=== PATIENT | female | born 1985 | race Caucasian/White ===

== ENCOUNTER 2020-06-08 10:57 | Emergency (ER) | payer SELFPAY ==
[2020-06-08 11:17] VITALS: BP 115/60; PULSE 65; RESP 18; TEMP 36.7; O2SAT 100
--- NOTE | 2020-06-08 11:50 | ED.GENADULT ---
HPI - General Adult General Chief complaint: Back Pain/Injury Stated complaint: neck and back pain Source: patient Mode of arrival: ambulatory Limitations: no limitations History of Present Illness HPI narrative: Patient presents for evaluation of right-sided neck pain for the last 2 weeks. She indicates she woke from sleep with her symptoms. No recent trauma to the affected area. She states she has had similar symptoms in the past and pain has resolved without intervention. She has been taking Tylenol for pain with some improvement thereafter. When she gets in the shower, warm water seems to help alleviate her symptoms. She currently rates her pain is 5 out of 10 in severity, described as sharp and pulling. Pain does radiate into the right scapula and along the right side of the neck. She denies any numbness or tingling in her upper extremities. Movement makes her pain worse. No additional complaints or concerns. Related Data Allergies Allergy/AdvReac Type Severity Reaction Status Date / Time No Known Allergies Allergy Verified 06/08/20 11:12 Review of Systems Review of Systems: Narrative: CONSTITUTIONAL: Denies fever, chills, or sweats. EYES: Denies visual changes, redness, or discharge. ENT: Denies rhinorrhea, congestion, sore throat, or otalgia. CARDIOVASCULAR: Denies chest pain, palpitations, or edema. RESPIRATORY: Denies cough or dyspnea. GASTROINTESTINAL: Denies abdominal pain, nausea, vomiting, or diarrhea. GENITOURINARY: Denies dysuria or hematuria. SKIN: Denies rash or itching. MUSCULOSKELETAL: Reports neck pain. Denies back pain, joint pain, or myalgia. NEUROLOGIC: Denies headache, numbness, dizziness, or weakness. PSYCHIATRIC: Denies anxiety or depression. PENDING SALE TO [facility] Past Medical History Medical History No pertinent past medical history Surgical History Surgical History History of Family History Family History Mother No pertinent past medical history Social History Social History (Updated 06/08/20 @ 11:52 by RENE Mendoza, JOSE) Smoking status: Never smoker Alcohol intake: never Substance use: never Living arrangements: with family Gender identity (if verbalized by the patient): Female Sexual Orientation (if Verbalized by the Patient): Straight or Heterosexual Spiritual care concerns: No Exam Narrative: Exam Narrative: GENERAL: Well-appearing, well-nourished, and in no acute distress. HEAD: Normocephalic, atraumatic. EYES: PERRLA and EOMI. ENT: Nares clear, no rhinorrhea or epistaxis. Mucous membranes moist. Oropharynx without tonsillar hypertrophy exudate or other lesions. Bilateral TMs pearly guadarrama nonbulging NECK: Supple. No adenopathy or masses. No carotid bruits or JVD. Tenderness in midline and right paraspinous muscles of the cervical spine and over the right trapezius CHEST: Clear to auscultation. No respiratory distress. No wheezes rales or rhonchi HEART: Regular rate and rhythm. No murmur heard. Normal peripheral pulses. ABDOMEN: Soft, nontender, nondistended, normal active bowel sounds. EXTREMITIES: Normal range of motion. No edema. SKIN: Warm, dry, no rash. NEURO: No focal deficits. Alert and oriented x3. PSYCH: Normal mood and affect. Course Course Emergency Course: This is a 35-year-old female who presents for evaluation of right-sided neck pain, worse with movement for the last 2 weeks. She has a history of similar symptoms. No trauma to the affected area Given the fact that pain is reproducible with movement and palpation, likely muscular in nature. We discussed risk versus benefits of imaging. Doubt fracture as patient has no trauma to the affected area. I told patient I could not definitively rule out pathologic fracture without imaging. She declined imaging. She
== END 2020-06-08 12:02 | disposition home or self-care (01) ==
PROVIDERS: Emergency Provider Nurse Practitioner; PCP Internal Medicine
DX: M79.10 Myalgia, unspecified site (principal)
CPT/HCPCS: 99213; G0463

== ENCOUNTER 2023-12-12 20:28 | Emergency (ER) | payer OTHER, SELFPAY ==
--- NOTE | ~2023-12-12 | XR_ITS ---
EXAMINATION: XR chest 2V DATE: 12/12/2023 23:53 INDICATION: Left flank pain. TECHNIQUE: Frontal and lateral views of the chest were obtained. COMPARISON: CT abdomen and pelvis 12/13/2023 FINDINGS: There is no pneumonia, pleural effusion, or pneumothorax. The heart size is normal. IMPRESSION: 1. No acute cardiopulmonary disease. Reviewed, dictated and finalized at location A.
--- NOTE | ~2023-12-12 | CT_ITS ---
EXAMINATION: CT abdomen pelvis wo con DATE: 12/13/2023 00:16 INDICATION: Right ureteral stone. TECHNIQUE: Computed tomography (CT) of the abdomen and pelvis was performed without intravenous contr ast. Automated exposure control and iterative reconstruction technique were employed. The dose-length product was 240.91 mGy-cm. COMPARISON: None. FINDINGS: The visualized portions of lung bases demonstrate minimal atelectasis. No pleural effusion. The heart size is normal. No pericardial effusion. The liver, gallbladder, spleen, pancreas, adrenal glands are normal. There is a 2 mm stone in right kidney. There is a 15 mm cyst of left kidney. Ther e is a 3 mm stone in left kidney. There are no dilated loops of bowel. The appendix is normal. There are no pathologically enlarged lymph nodes. There is no free intraperitoneal fluid. There is a 4 mm s tone in the bladder. The bones are unremarkable. IMPRESSION: 1. 4 mm stone in the bladder. 2. Bilateral nonobstructing kidney stones. Reviewed, dictated and finalized at location A.
[2023-12-12 20:48] VITALS: BP 98/62; PULSE 69; RESP 18; TEMP 36.7; O2SAT 100
[2023-12-12 23:07] LABS: BEDSIDEPREGUCG Negative
[2023-12-12 23:14] LABS: Add Urine Microscopic? YES; Appearance Urine Cloudy (Clear); Bilirubin Urine Negative (Negative); Blood Urine 3+ (Negative); Color Urine Yellow (Yellow); Glucose Urine UA Negative (Negative); Ketones Urine Negative (Negative); Leukocyte Esterase Ur 1+ LEU/UL (Negative); Nitrate Urine Negative (Negative); Non Pathogenic Casts 0-2; Protein Urine Trace mg/dL (Negative); RBC Urine 21-50 /hpf (0-2); Specific Grav Ur 1.019 (1.001-1.035); Squamous Epithelial Cell Urine Occasional /hpf (Few); Urobilinogen Urine 0.2 mg/dL (<2.0); pH Urine 5.5 (5.0-9.0)
[2023-12-12 23:38] LABS: Bacteria Urine Trace /hpf
[2023-12-12 23:40] LABS: Basophils Absolute Auto 0.1 K/mm3 (0.0-0.1); Basophils Percent Auto 0.5 % (0.2-1.2); Eosinophils Absolute Auto 0.2 K/mm3 (0-0.3); Eosinophils Percent Auto 1.5 % (0-4.4); Hematocrit 36.5 % (37.0-47.0); Hemoglobin 11.9 g/dL (12.0-15.0); Immature Granulocyte Absolute 0.06 K/mm3 (0.00-0.031); Immature Granulocyte Percent A 0.4 % (0-0.5); Lymphocytes Absolute Auto 2.76 K/mm3 (0.9-3.2); Lymphocytes Percent Auto 19.3 % (18.3-44.2); Mean Corpuscular HGB Conc 32.6 g/dl (32-36); Mean Corpuscular Hemoglobin 30.1 pg (26-34); Mean Corpuscular Volume 92.4 fl (80-100); Mean Platelet Volume 9.5 fl (7.4-10.4); Monocytes Absolute Auto 0.8 K/mm3 (0.1-0.6); Monocytes Percent Auto 5.7 % (2.6-8.5); Neutrophils Absolute Auto 10.4 K/mm3 (1.3-6.7); Neutrophils Percent Auto 72.6 % (45.5-73.1); Platelet Count Result 360 k/mm3 (150-375); Red Blood Count 3.95 M/mm3 (4.2-5.4); White Blood Count 14.3 K/mm3 (4.5-10.0)
--- NOTE | 2023-12-12 23:53 | ED.FEMALEGU ---
HPI - Female Genitourinary General Chief complaint: Urogenital-Female <Shelley Dc PA-C - Last Filed: 12/13/23 02:47> Stated complaint: flank pain <Shelley Dc PA-C - Last Filed: 12/13/23 02:47> Time Seen by Provider: 12/12/23 23:14 <Shelley Dc PA-C - Last Filed: 12/13/23 02:47> History of Present Illness HPI Narrative: 38-year-old female presents to the emergency department with concerns for right-sided kidney stone. Patient states yesterday at 2:00 p.m. she began developing pain in her right flank and today it moved into her abdomen. She states she has had kidney stones in the past and this is what it had felt like. She states earlier she thinks she may have passed the kidney stone but is unsure. States she has been having some dysuria, urinary frequency and urgency as well as hematuria. She states she may have passed a blood clot in her urine when she came to the ED. She denies fever, nausea or vomiting. States she took Tylenol prior to arrival with improvement. States she is not having any pain right now. <Shelley Dc PA-C - Last Filed: 12/13/23 02:47> Related Data Allergies/Adverse reactions: Allergies Allergy/AdvReac Type Severity Reaction Status Date / Time sulfamethoxazole AdvReac Nausea and Verified 12/12/23 20:56 [From Bactrim] Vomiting trimethoprim [From Bactrim] AdvReac Nausea and Verified 12/12/23 20:56 Vomiting <Shelley Dc PA-C - Last Filed: 12/13/23 02:47> Review of Systems Review of Systems: All systems reviewed & are unremarkable except as noted in HPI and below <Shelley Dc PA-C - Last Filed: 12/13/23 02:47> PMFSH Past Medical History Medical History: Medical History No pertinent past medical history <Shelley Dc PA-C - Last Filed: 12/13/23 02:47> Surgical History Surgical History: Surgical History History of <Shelley Dc PA-C - Last Filed: 12/13/23 02:47> Family History Family History: Family History Mother No pertinent past medical history <Shelley Dc PA-C - Last Filed: 12/13/23 02:47> Social History Social History: Social History Smoking status: Never smoker Alcohol intake: never Substance use: never Living arrangements: with family Gender identity (if verbalized by the patient): Female Sexual Orientation (if Verbalized by the Patient): Straight or Heterosexual Spiritual care concerns: No <Shelley Dc PA-C - Last Filed: 12/13/23 02:47> Exam Narrative: GENERAL: Well-appearing, well-nourished, and in no acute distress. HEAD: Normocephalic, atraumatic. ENT: Nares clear, no rhinorrhea or epistaxis. Mucous membranes moist. NECK: Supple. CHEST: Clear to auscultation. No respiratory distress. HEART: Regular rate and rhythm. No murmur heard. Normal peripheral pulses. ABDOMEN: Soft, nontender, nondistended, normal active bowel sounds. No rebound, guarding or rigidity. No CVA tenderness EXTREMITIES: Normal range of motion. No edema. SKIN: Warm, dry, no rash. NEURO: No focal deficits. Alert and oriented x3 <Shelley Dc PA-C - Last Filed: 12/13/23 02:47> Course DISH CARRIER/PA Physician Supervision I agree with midlevel documentation; I performed the medical decision making component of this evaluation. <Malgorzata Edmondson MD - Last Filed: 12/13/23 04:55> Reevaluation(s) Reevaluation #1: Patient feeling very comfortable, suspect that the right sided stone has passed and based on CT scan, she only has a small 2 mm left mid ureter nonobstructing stone. She is denying any pain right now. I did discuss this with the urologist on-call given her benign exam, no fevers here, normal lactic acid, likely n
[2023-12-12 23:57] LABS: Alanine Aminotransferase 9 U/L (6-35); Albumin Level 4.2 g/dL (3.5-5.1); Alkaline Phosphatase 61 U/L (38-126); Anion Gap 10 mmol/L (4-12); Aspartate Amino Transferase 20 U/L (14-36); Bilirubin,Total 0.3 mg/dL (0.2-1.3); Blood Urea Nitrogen 15 mg/dL (7-17); CRP < 0.5 mg/dL (<1.0); Calcium 8.9 mg/dL (8.4-10.2); Carbon Dioxide 25 mmol/L (22-30); Chloride 102 mmol/L (98-107); Estimated CRCL calculation 96 ml/min; Estimated Glomerular Filt Rate > 60; Glucose 95 mg/dL (65-110); Potassium 3.9 mmol/L (3.4-5.0); Sodium 137 mmol/L (137-145)
[2023-12-13] MEDS: SODIUM CHLORIDE 0.9% IV 1,000 ML 999 ML IV CONT (00:03)
[2023-12-13 00:06] VITALS: BP 94/62; PULSE 68; RESP 15; O2SAT 100
[2023-12-13 00:24] LABS: Lactic Acid Reflex 0.6 mmol/L (0.7-2.0)
[2023-12-13 03:00] VITALS: BP 102/74; PULSE 61; RESP 15; O2SAT 99
[2023-12-13 04:20] VITALS: BP 112/56; PULSE 66; RESP 16; O2SAT 99
== END 2023-12-13 04:20 | disposition home or self-care (01) ==
PROVIDERS: Emergency Medicine; Emergency Provider Physician Assistant; PCP Internal Medicine
DX: N39.0 Urinary tract infection, site not specified (principal); N20.0 Calculus of kidney; Z87.442 Personal history of urinary calculi
CPT/HCPCS: 36415; 71046; 74176; 80053; 81001; 81025; 83605; 85025; 86140; 87086; 96361; 96365; 99284; J0696; J7030

== ENCOUNTER 2025-02-27 18:58 | Emergency (ER) | payer OTHER, SELFPAY ==
--- OUTSIDE RECORDS SUMMARY | 2025-02-27 19:00 | XMS_ITS | Clinical Summary ---
Author Organization [facility] Address [address], [address] [address] Phone Care Team Providers Care Photographic Double Name Role Phone Santos Dewitt MD Primary Care Provider [phone] Tiff Hernandez APRN, G[employer]TON[employer] MACHINE OPERATOR Unavailable Gentry Loo MD Unavailable [phone] Allergies Active Allergy Reactions Criticality Noted Date Comments Sulfamethoxazole-Trimet hoprim Other (see Comments) 03/24/2022 Vaginal itching Medications citalopram (CeleXA) 20 MG Tablet Take 1 Tablet by mouth every morning. 90 Tablet 1 08/08/2024 Active LORazepam (ATIVAN) 0.5 MG TabletIndicatio ns:Anxiety Take 1 Tablet by mouth every 12 hours as needed for Anxiety. Indications: Feeling Anxious 12 Tablet 08/08/2024 Active Active Problems Problem Noted Date Diagnosed Date Pain of left calf 03/12/2016 Dysuria 07/11/2015 Furuncle of axilla 06/17/2015 Dysuria 05/27/2015 Gastroesophageal reflux disease without esophagi tis 05/27/2015 Weight gain 04/02/2015 Encounters Date Type Department Care Team Description 12/07/2024 Nurse Triage [facility] [address] [place] [address] Sanots Dewitt MD Advice Only; Urinary Frequency from Last 3 Months Immunizations Immunization Administration Dates Next Due Covid-19, Mrna, Lnp-s, Pf, 1 00 Mcg Or 50 Mcg Dose (MODERNA) 06/14/2021,10/12/2020,09/14/2020 Influenza Vaccine greater than 3 yrs 05/03/2015 Influenza, Seasonal, Injectable, Undefined 05/03 Family History Medical History Relation Name Comments Diabetes Brother Learning Disability Daughter 1 (9) Eczema Daughter 2 (5) Osteoarthritis Father Breast Cancer Mother Celiac Disease Mother Diabetes Mother Osteoarthritis Mother Pacemaker Paternal Grandfather Autism Son (13) Relation Name Status Comments Brother Alive Daughter 1 (9) Alive Daughter 2 (5) Alive Father Alive Mother Alive Paternal Grandfather Alive Paternal Grandmother Alive Son (13) Alive Social History Tobacco Use Types Packs/Day Years Used Date Smoking Tobacco: Never Smokeless Tobacco: Never Tobacco Cessation:Counseling Given: No Alcohol Use Standard Drinks/Week Comments No 0 (1 standard drink = 0.6 oz pur e alcohol) occasionally [employer] Answer Date Recorded In the past 12 months has [employer] electric, gas, oil, or water [employer] threatened to shut off services in your home? Patient declined 08/08/2024 Social Connection and Isolation Panel Answer Date Recorded In a typical week, how many times do you talk on the phone with family, friends, or neighbors? Patient declined 08/08/2024 How often do you get togethe r with friends or relatives? Patient declined 08/08/2024 How often do you attend confucianism or presybeterian serv ices? Patient declined 08/08/2024 Do you belong to any clubs o r organizations such as confucianism groups, unions, fraternal or athletic groups, or school groups? Patient declined 08/08/2024 How often do you attend meet ings of the clubs or organizations you belong to? Patient declined 08/08/2024 Are you , , di vorced, , never , or living with a partner? Patient declined 08/08/2024 AUDIT-C Answer Date Recorded Q1: How often do you have a drink containing alc ohol? Patient declined 08/08/2024 Q2: How many drinks containi ng alcohol do you have on a typical day when you are drinking? Patient declined 08/08/2024 Q3: How often do you have si x or more drinks on one occasion? Patient declined 08/08/2024 Overall Financial Resource Strain (CARDIA) Answe r Date Recorded How hard is it for you to pa y for the very basics like food, housing, medical care, and heating? Patient declined 08/08/2024 PHQ-2 Answer Date Recorded Total Score - Questions 1-9 20 12/2024 [facility] - Occupational Stress Questionnaire Answer Date Recorded Do you feel stress - tense, restless, nervous, or anxious, or unable to sleep at night because your mind is troubled all the time - these days? Patient declined 08/08/2024 Exercise Vital Sign Answer Date Recorde d On average, how many days pe r week do you engage in moderate to strenuous exercise (like a brisk walk)? Patient declined On average, how many minutes do you engage in exercise at this level? Patient declined 08/08/2024 Hunger Vital Sign Answer Date Recorded Within the past 12 months, y ou worried that your food would run out before you got the money to buy more. Patient declined Within the past 12 months, t he food you bought just didn't last and you didn't have money to get more. Patient declined 12/2024 PRAPARE - Transportation Answer Date Re corded In the past 12 months, has l ack of transportation kept you from medical appointments or from getting medications? Patient declined 08/08/2024 In the past 12 months, has l ack of transportation kept you from meetings, work, or from getting things needed for daily living? Patient declined 08/08/2024 Housing Stability Vital Sign Answer Ottoniel e Recorded In the last 12 months, was t here a time when you were not able to pay the mortgage or rent on time? Patient declined 08/09/19 25 In the past 12 months, how m any times have you moved where you were living? 0 08/08/2024 At any time in the past 12 m [facility], were you homeless or living in a group home (including now)? Patient declined 08/08/2024 Education Answer Date Recorded What is the highest level of school you have completed or the highest degree you have received? 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 Not on file Not on file Not on file Last Filed Vital Signs Vital Sign Reading Time Taken Comments Blood Pressure 96/58 09/05/2024 8:44 AM CDT Pulse 62 09/05/2024 8:44 AM CDT Temperature 36.2 C (97.1 F) 09/05/2024 8:44 AM CDT Respiratory Rate 16 09/05/2024 8:44 AM CDT Oxygen Saturation 99% 09/05/2024 8:44 AM CDT Inhaled Oxygen Concentration - - Weight 72 kg (158 lb 11.2 oz) 09/05/2024 8:44 AM CDT Height 165.1 cm (5' 5) 09/05/2024 8:44 AM CDT Body Mass Index 26.41 09/05/2024 8:44 AM CDT Plan of Treatment Upcoming Encounters Date Type Department Care Team (Late st Contact Info) Description 03/06/2025 8:00 AM PHLEBOTOMY COORDINATOR Office Visit [facility] [address] [place] [address] Santos Dewitt MD [address] [address] Health Maintenance Due Date Last Done Comments Hepatitis C Virus (HCV) Screening 1987 Hepatitis B Immunization (1 of 3 - 19+ 3-dose series) 2006 Pap Smear 02/26/2008 Human Papillomavirus (HPV) Immunization (1 - 3-dose SCDM series) 2014 Cervical Cancer Screening (CCS) 2017 HPV/Cotest 2017 Influenza Immunization (#1) 01/01/2025/0 05/2015, 05/03/2015 SARS-COV-2 Immunization ( season) 2025 06/14/2021, 10/12/2020, 09/14/2020 TdaP Immunization 02/21/2025 Postponed from 1987 (Patient Temporarily Declines) Respiratory Syncytial Virus (RSV) Immunization (Adult) (1 - 1-dose 75+ series) 2062 Meningococcal Immunization (ACWY) Aged Out No longer eligible b ased on patient's age to complete this topic Pneumococcal Immunization Combined Aged Out No longer eligible b ased on patient's age to complete this topic Rotavirus Immunization Aged Out No lo nger eligible based on patient's age to complete this topic Goals Goal Patient Goal Type Associated Problems Recent Progress Patient-Stated? Author Behavioral Health Behavioral Health Yes Cuong Ferro PSYD Note: Goal/Objective: Decrease symptoms of anxiety. Anticipated Time Frame for Goal Completion: 8 weeks Goal Reviewed with: patient Readiness to change: Ready to change Department associated with goal: [facility] Steps to achieve goal: will attend counseling/psychotherapy sessions at least once monthly at least 6 sessions , utilizing individual and/or group sessions to express thoughts and feelings. to identify, verbalize and process at least three contributing factors/triggers to anxiety. T o identify at least two lifestyle changes/habits. to put into action, at least one lifestyle change/habit, for one month or longer, to reduce and or cope with anxiety. Insurance [facility] Care Teams Photographic Double Relationship Specialty Start Date End Date Santos Dewitt MD [address] [address] PCP - General Family Medicine 04/02/15 Tiff Hernnadez APRN, G[employer]TONHOLE MACHINE OPERATOR [address] [address] Nurse Practitioner Advanced Practice Nurse 10/02/15 Gentry Loo MD [address] [facility] [address] [place] [address] Obstetrics & Gynecology 05/06/17
[2025-02-27 19:03] VITALS: BP 111/59; PULSE 68; RESP 20; TEMP 36.8; O2SAT 99
--- NOTE | 2025-02-27 19:46 | ED_ITS ---
HPI - Ear Problem General Chief complaint: Ear Stated complaint: Right Ear Pain/Right Jaw Pain Time Seen by Provider: 02/27/25 19:30 Source: patient and RN notes reviewed Mode of arrival: ambulatory Limitations: no limitations History of Present Illness HPI Narrative: 32-year-old female presents [facility] complaining of right ear pain for last 2-3 days. Patient says the pain is not constant is worse with opening closing of her right jaw. Patient denies any other upper respiratory symptoms, cough, fevers, body aches, chills, nausea vomiting, diarrhea, chest pain, shortness of breath, or any other symptoms. Patient denies any history of TMJ. Patient does report that she bites her nails frequently. Related Data Home Medications ?Medication ?Instructions ?Recorded ?Confirmed ?Last Taken ?Type citalopram 20 mg tablet mg 02/27/25 Unknown History Allergies Allergy/AdvReac Type Severity Reaction Status Date / Time sulfamethoxazole (From AdvReac Nausea and Verified 02/27/25 19:17 Bactrim) Vomiting trimethoprim (From Bactrim) AdvReac Nausea and Verified 02/27/25 19:17 Vomiting Review of Systems Review of Systems: CONSTITUTIONAL: Denies fever, chills, or sweats. EYES: Denies visual changes, redness, or discharge. ENT: Denies rhinorrhea, congestion, sore throat. Positive for otalgia. CARDIOVASCULAR: Denies chest pain, palpitations, or edema. RESPIRATORY: Denies cough or dyspnea. GASTROINTESTINAL: Denies abdominal pain, nausea, vomiting, or diarrhea. GENITOURINARY: Denies dysuria or hematuria. SKIN: Denies rash or itching. MUSCULOSKELETAL: Denies back pain, joint pain, or myalgia. NEUROLOGIC: Denies headache, numbness, or weakness. PSYCHIATRIC: Denies anxiety or depression. All other systems reviewed are negative, except as documented in HPI. [facility] Past Medical History Medical History No pertinent past medical history Surgical History Surgical History History of Family History Family History Mother No pertinent past medical history Social History Social History Smoking status: Never smoker Alcohol intake: never Substance use: never Living arrangements: with family Gender identity (if verbalized by the patient): Female Sexual Orientation (if Verbalized by the Patient): Straight or Heterosexual Spiritual care concerns: No Comments At the time of my signature, I reviewed and agree with the nursing past medical, surgical, social, and family history. There is no relevant family history pertinent to the patient complaint. Exam Narrative: GENERAL: This is a well-nourished, well-developed adult, in no apparent distress. They are non ill-appearing, nontoxic appearing. HEAD: normocephalic, atraumatic. EYES: Sclera clear/white. Conjunctiva normal. Vision is grossly intact. Extraocular movements intact EARS: External ears normal, auditory canals clear and without drainage, TMs normal without perforation. Hearing grossly intact. NOSE: External nose normal with no obvious nasal discharge, nasal turbinates without redness, no rhinorrhea. THROAT: Mucous membranes moist, posterior pharynx clear, without erythema or swelling. Uvula midline. OROPHARYNX: No gross tooth decay. No dental caries. Teeth are intact. No missing teeth. Tongue is normal. No trismus. Right TMJ tender to palpate. NECK: Neck supple, non-tender without lymphadenopathy, masses or thyromegaly. CARDIOVASCULAR: Regular rate and rhythm RESPIRATORY: Respiratory rate normal, respiratory effort nonlabored, no respiratory distress SKIN: warm, Dry, intact with no suspicious lesions or rash, good texture and turgor. NEURO: awake, alert, and oriented to person, place and time. There were no obvious focal neurologic abnormalities. EXTREMITIES: No joint tenderness, effusion, or edema noted. Course Course Emergency Course: Portions of this record may have been created with voice recognition software Level of Care: Express Care Visit Vital Signs Vital signs: Vital Signs Temperature 98.2 F 02/27/25 19:03 Pulse Rate 68 02/27/25 19:03 Respiratory Rate 20 02/27/25 19:03 Blood Pressure 111/59 L 02/27/25 19:03 Pulse Oximetry 99 02/27/25 19:03 Oxygen Delivery Room Air 02/27/25 19:03 Temperature 98.2 F 02/27/25 19:03 Pulse Rate 68 02/27/25 19:03 Respiratory Rate 20 02/27/25 19:03 Blood Pressure 111/59 L 02/27/25 19:03 Pulse Oximetry 99 02/27/25 19:03 Oxygen Delivery Room Air 02/27/25 19:03 Reviewed Medical Decision Making MDM Narrative Medical decision making narrative: Patient likely has TMJ. No evidence of your infection, right TMJ is tender to palpate. Discussed good TMJ hygiene advice patient quit biting her nails. We were short course of prednisone to help with inflammation. Discussed physical exam findings. Advised supportive measures and signs/symptoms to go to the ER. Pt is appropriate for outpt treatment and f/u. Differential Diagnosis Differential Diagnosis: TMJ, otitis media, otitis externa, upper respiratory infection Vital Signs Vital Signs: Vital Signs Temperature 98.2 F 02/27/25 19:03 Pulse Rate 68 02/27/25 19:03 Respiratory Rate 20 02/27/25 19:03 Blood Pressure 111/59 L 02/27/25 19:03 Pulse Oximetry 99 02/27/25 19:03 Oxygen Delivery Room Air 02/27/25 19:03 Temperature 98.2 F 02/27/25 19:03 Pulse Rate 68 02/27/25 19:03 Respiratory Rate 20 02/27/25 19:03 Blood Pressure 111/59 L 02/27/25 19:03 Pulse Oximetry 99 02/27/25 19:03 Oxygen Delivery Room Air 02/27/25 19:03 Critical Care Time Critical Care Time Critical Care Time: No Discharge Plan Discharge Clinical Impression: Temporomandibular joint pain Patient Disposition: Home Condition: Stable Instructions: Antibiotic Form, Temporomandibular Disorder (ED) Additional Instructions: Take the prednisone as directed. Take Tylenol ibuprofen as needed for pain. You may take ibuprofen 600 mg to 800 mg every 6-8 hours. Do not exceed more than 800 mg of ibuprofen per dose. Do not exceed more than 3200 mg ibuprofen in a day. You may take up to 1000 mg Tylenol every 6-8 hours. Do not exceed 1000 mg per dose, do exceed more than 4000 mg of Tylenol in a day. Avoid hard foods have a soft non chewing diet to help with symptoms. Avoid any bad habits such as tooth grinding, clutching, tapping, jaw posturing, nail biting, or gum chewing. Practice good sleep hygiene. Maintain good posture of your head and neck. Follow-up with PCP in 3-5 days. Go to the ER for any severe severe pain, unable to open or closed her jaw, difficulty clearing secretions, breathing problems, or any serious concerns. Patient Language: Macedonian Prescriptions: New prednisone 20 mg tablet 40 mg PO DAILY 5 Days Qty: 10 0RF No Action citalopram 20 mg tablet Follow-up/Referrals: Renate,Santos Barcenas MD [Primary Care Provider] Time of Disposition: 19:45
== END 2025-02-27 19:50 | disposition home or self-care (01) ==
PROVIDERS: PCP Internal Medicine
DX: M26.621 Arthralgia of right temporomandibular joint (principal)
CPT/HCPCS: 99213; G0463